=== PATIENT | female | born 2000 | race Caucasian/White ===

== ENCOUNTER 2019-01-31 13:17 | Emergency (ER) | payer BC ==
--- OUTSIDE RECORDS SUMMARY | 2019-01-31 14:00 | XMS REPORT | Continuity of Care Document ---
:2000 External Reference #:[id number] Author Name Litzy Poon Care Team Providers Name Role Phone Patient's Choice Primary Care Physician Unavailable Payers Date Identification Numbers Payment Provider Subscriber Effective: 2018 Policy Number: [id number] [employer] Yumiko Meek PayID: [id number] [address] [address] [place] [address] Advance Directives Description No Information Available Problems Date Description Provider Status Onset: 08/07/2018 Irritable bowel syndrome Yumiko Mak NP Active Onset: 10/24/2018 Gastroesophageal reflux disease Yumiko Mak NP Active Onset: 10/24/2018 Laparoscopy Yumiko Mak NP Active Note: nodule removal from left sacral ligament on her uterus. Onset: 12/15/2018 Anxiety Yumiko Mak NP Active Onset: 12/15/2018 Mild depression Yumiko Mak NP Active Family History Date Family Member(s) Observation Comments Father Hypercholesterolemia Father Hypertension Mother No Current Problems Siblings 1 Social History Type Date Description Comments Sex Unknown Lives With Alone Occupation Student ETOH Use Occasionally consumes alcohol Tobacco Use Start: Unknown Patient has never smoked Recreational Drug Use Current Drug User pot Smoking Status Reviewed: 01/09/19 Patient has never smoked Exercise Type/Frequency Exercises sporadically Allergies, Adverse Reactions, Alerts Date Description Reaction Status Severity Comments 08/07/2018 Sulfa Antibiotics Active Medications Medication Date Status Form Strength Qnty SIG Indications Ordering Provider Propranolol 01/09/ Active Tablets 10mg 1 tab by Other HCL 2019 mouth Ordering three a Provider day Mirena (52 MG) 12/15/ Active IUD 20mcg/24HR Other 2019 Ordering Provider Zofran 18/ Active Tablets 4mg 30tabs one tablet Yumiko 2018 every 6 to CAMI Mak 8 hours as needed Pantoprazole 09/26/ Active Tablets DR 40mg 30tabs take as Yumiko Sodium 2018 directed Mak, MANAGER RADIATION 30 minutes prior to meal once a day Duloxetine HCL / Active Caps DR 20mg Unknown 0000 Part Prazosin HCL / Active Capsules 1mg Unknown 0000 Buspirone HCL / Active Tablets 5mg Unknown 0000 Align 09/01/ Hx 4mg Yumiko Probiotic 2018 - Mak, MANAGER RADIATION 2018 No Active 08/07/ Hx Unknown Medications 2017 - 2017 Zofran 08/07/ Hx Tablets 4mg Yumiko 2018 - Mak, MANAGER RADIATION 2017 Ondansetron 08/07/ Hx Tablets 4mg Yumiko 2018 - Dispers Mak, MANAGER RADIATION 2017 No Active 08/07/ Hx Unknown Medications 2017 - 2017 Ondansetron 08/07/ Hx Tablets 4mg 15tabs take one Yumiko 2017 - Dispers tablet for Mak, MANAGER RADIATION 09/26/ nausea 2018 q8hr as needed Fibercon / Hx Tablets 625mg take 2 Unknown 0000 - tablets by 12/14/ mouth two 2019 times daily or as directed Sertraline HCL / Hx Tablets 100mg 1 by mouth Unknown 0000 - every day 2018 Propranolol / Hx Tablets 10mg 1 tab by Unknown HCL 0000 - mouth 01/08/ a 2018 day Immunizations Description No Information Available Vital Signs Date Vital Result Comment 01/09/2019 8:50am Height 62.5 inches 5'2.50" Weight 121.38 lb Heart Rate 72 /min BP Systolic 103 mmHg BP Diastolic 58 mmHg Respiratory Rate 16 /min Body Temperature 98.3 F O2 % BldC Oximetry 100 % BMI (Body Mass Index) 21.8 kg/m2 12/15/2018 11:10am Height 62.5 inches 5'2.50" Weight 116.00 lb Heart Rate 60 /min BP Systolic 104 mmHg BP Diastolic 64 mmHg Respiratory Rate 16 /min Body Temperature 97.9 F O2 % BldC Oximetry 99 % BMI (Body Mass Index) 20.9 kg/m2 10/24/2018 11:17am Height 62.5 inches 5'2.50" Weight 117.38 lb Heart Rate 91 /min BP Systolic 110 mmHg BP Diastolic 66 mmHg Respiratory Rate 16 /min Body Temperature 97.2 F O2 % BldC Oximetry 100 % BMI (Body Mass Index) 21.1 kg/m2 09/15/2018 1:20pm Height 62.5 inches 5'2.50" Weight 123.12 lb Heart Rate 88 /min BP Systolic 120 mmHg BP Diastolic 58 mmHg Respiratory Rate 18 /min O2 % BldC Oximetry 99 % BMI (Body Mass Index) 22.2 kg/m2 09/01/2018 11:46am Height 62.5 inches 5'2.50" Weight 122.00 lb Heart Rate 135 /min pt states she feels dehydrated BP Systolic 140 mmHg BP Diastolic 90 mmHg Respiratory Rate 20 /min Pain Level 0 O2 % BldC Oximetry 99 % BMI (Body Mass Index) 22.0 kg/m2 08/07/2018 2:23pm Height 62.5 inches 5'2.50" Weight 131.12 lb Heart Rate 64 /min BP Systolic Sitting 102 mmHg BP Diastolic Sitting 62 mmHg Respiratory Rate 20 /min Body Temperature 99.3 F O2 % BldC Oximetry 100 % BMI (Body Mass Index) 23.6 kg/m2 Results Test Date Facility Test Result H/L Range Note Laboratory test 01/01/2019 [facility] Clotest SEE RESULT 1 , [address] [place] [address] [phone] Laboratory test 01/01/2019 [facility] Surgical SEE RESULT 3 , [address] [place] [address] [phone] Laboratory test 12/15/2018 [facility] TSH (Thyroid 0.22 Low 0.34-5.[address] Stim Horm) mcIU/[place] [address] [phone] T3 Free 3.60 pg/mL N 2.5-3.9 Free T4 (Free Thyroxine) 0.86 ng/dL N 0.61-1.12 Laboratory test 10/25/2018 [facility] Gastrin 83 pg/mL [address] [place] [address] [phone] Laboratory test 09/06/2018 [facility] Stool Culture SEE RESULT [address] [place] [address] [phone] Stool Calprotectin <15.6 g/G 7 E.Coli 0157:H7 SEE RESULT BELOW 8 CBC No Diff 09/01/2018 [facility] White Blood 9.7 10^3/uL N 3.5-10.[address] [place] [address] [phone] Red Blood Count 4.93 10^6/uL N 4.00-5.40 Hemoglobin 14.6 g/dL N 12.0-16.0 Hematocrit 42 % N 35-47 Mean Corpuscular Volume 85 fL N 80-97 Mean Corpuscular Hemoglobin 30 pg N 27-31 Mean Corpuscular HGB Conc 35 g/dL N 31-36 Red Cell Distribution Width 14 % N 10.5-15 Platelet Count 280 10^3/uL N 150-450 Mean Platelet Volume 8.0 fL N 7.4-10.4 Laboratory test 09/01/2018 [facility] C Reactive 2.51 mg/L N < 8.[address] [place] [address] [phone] Comp Metabolic 09/01/2018 [facility] Sodium 140 mmol/L N 135- [address] [place] [address] [phone] Potassium 3.9 mmol/L N 3.5-5.0 Chloride 105 mmol/L N 101-111 Co2 Carbon Dioxide 23 mmol/L N 22-32 Anion Gap 12 mmol/L High 2-11 Glucose 77 mg/dL N 70-100 Blood Urea Nitrogen 10 mg/dL N 6-24 Creatinine 0.78 mg/dL N 0.51-0.95 BUN/Creatinine Ratio 12.8 N 8-20 Calcium 9.7 mg/dL N 8.6-10.3 Total Protein 7.3 g/dL N 6.4-8.9 Albumin 5.0 g/dL N 3.2-5.2 Globulin 2.3 g/dL N 2-4 Albumin/Globulin Ratio 2.2 N 1-3 Total Bilirubin 0.60 mg/dL N 0.2-1.0 Alkaline Phosphatase 63 U/L N 34-104 Alt 12 U/L N 7-52 Ast 19 U/L N 13-39 Egfr Non- 94.2 >60 Egfr 113.9 >60 9 Lipid Profile 09/01/2018 [facility] Triglycerides 47 mg/dL 10 (Trig/Chol/HDL) [address] [place] [address] [phone] Cholesterol 144 mg/dL 11 HDL Cholesterol 34.7 mg/dL 12 LDL Cholesterol 100 mg/dL 13 Laboratory test 09/01/2018 [facility] Stool Culture <pending> finding [address] [place], [place] [id number] [phone] E.Coli 0157:H7 <pending> Stool Calprotectin <pending> 1 [id number] 2 SEE RESULT BELOW Name: AUDELIA MEEK : [address]: Lazarus Lopez MD Acct: [id number] Unit: [id number] AGE: 18 Location: [facility] Re01/01/19 SEX: F Status: DEP REF SPEC: [id number] NAKUL: 01/01/19-[address] [facility] [address]: Lazarsu Lopez MD REQ: [id number] RECD: 01/01/19 STATUS: BREANA CONTRERAS DR: Yumiko Mak MANAGER RADIATION _ SOURCE: GAS ANTRUM SPDESC: ORDERED: Clotest COMMENTS: [id number] Procedure Result Reported Site Clotest Final 01/02/19- 38 ML Clotest Negative * ML - Main Lab . END OF REPORT DEPARTMENT OF PATHOLOGY, [address] [place] [address] Kali Duffy M.D. Director [facility] # [id number] SEE RESULT BELOW Name: AUDELIA MEEK : [address]: Lazarus Lopez MD Acct: [id number] Unit: [id number] AGE: 18 Location: [facility] Re01/01/19 SEX: F Status: DEP REF SPEC: [id number] NAKUL: 01/01/19-[address] [facility] [address]: Lazarus Lopez MD REQ: [id number] RECD: 01/01/19160 STATUS: YELITZA OCNTRERAS DR: Rios Terry MD _ ORDERED: LEVEL 4 COMMENTS: [id number] FINAL DIAGNOSIS Duodenum, third portion, biopsy: -- Benign small intestinal mucosa with no significant pathologic abnormalities. -- No evidence of villous blunting or increased intraepithelial lymphocytes. CLINICAL HISTORY Nausea every AM and dry heaving started in February of 2018 bad in August; upper and lower pain; lots of diarrhea POST-OPERATIVE DIAGNOSIS EGD: larynx - symmetric; esophagus - normal x 36 cm; esophagogastric junction - normal; stomach - normal; duodenum - normal, biopsy; conclusions: normal EGD; nausea GROSS DESCRIPTION The specimen is received in formalin labeled, Third Portion Duodenum Biopsy, and consists of two aguilar-pink irregular soft tissue fragments measuring 0.4 x 0.4 x 0.1 cm and 0.5 by up to 0.3 x 0.1 cm which are submitted entirely in one cassette. Signed by and Reported on: Dianne Zimmerman MD 01/02/19 1144 END OF REPORT DEPARTMENT OF PATHOLOGY, [address] [place] [address] Kali Duffy M.D. Director [facility] # [id number] 5 REFERENCE VALUE <100 Reference ranges valid for >=8 hour fast. Test Performed by: [facility] [address] [place] [address] 6 SEE RESULT BELOW Name: AUDELIA MEEK : [address]: Yumiko Mak NP Acct: [id number] Unit: [id number] AGE: 18 Location: [facility] Re09/06/18 SEX: F Status: REG REF SPEC: [id number] NAKUL: 09/06/18-[address] [facility] [address]: Yumiko Mak NP REQ: [id number] RECD: 09/06/18 STATUS: RES _ SOURCE: STOOL SPDESC: ORDERED: E.coli O157:H7, Stool Culture COMMENTS: [id number] Procedure Result Reported Site E.coli O157:H7 Culture PENDING Stool Culture PENDING Stool Specimen Description Final 09/06/18- 1130 ML Stool Color Brown Stool Form Formed Stool Consistency Firm Shiga Toxin 1 2 Final 09/07/18- 1033 ML Organism 1 Negative Shiga Toxin 1 2 Immunochromatographic Assay * ML - Main Lab . END OF REPORT DEPARTMENT OF PATHOLOGY, [address] [place] [address] Kali Duffy M.D. Director [facility] # [id number] 7 REFERENCE VALUE <=50.0 (Normal) Test Performed by: [facility] [address] [place] [address] 8 SEE RESULT BELOW Name: AUDELIA MEEK : [address]: Yumiko Mak NP Acct: [id number] Unit: [id number] AGE: 18 Location: [facility] Re09/06/18 SEX: F Status: REG REF SPEC: [id number] NAKUL: 09/06/18-[address]: Yumiko Mak NP REQ: [id number] RECD: 09/06/18 STATUS: COMP _ SOURCE: STOOL SPDESC: ORDERED: E.coli O157:H7, Stool Culture COMMENTS: [id number] Procedure Result Reported Site E.coli O157:H7 Culture Final 09/09/18- 1434 ML E. coli 0157 Culture Negative Stool Culture Final 09/09/18- 1434 ML Result No enteric pathogens isolated Testing for Salmonella, Shigella, Aeromonas, Plesiomonas, Yersinia and Campylobacter are included in a Stool Culture. Vibrio spp not routinely tested for in a stool culture. If testing is desired, please request specifically when placing test order. Sensitivities not routinely performed on stool isolates, as antibiotics may prolong the carriage rate of bacteria. Please contact the microbiology lab if sensitivities are required. Stool Specimen Description Final 09/06/18- 1130 ML Stool Color Brown Stool Form Formed Stool Consistency Firm Shiga Toxin 1 2 Final 09/07/18- 1033 ML Organism 1 Negative Shiga Toxin 1 2 CONTINUED ON NEXT PAGE DEPARTMENT OF PATHOLOGY, [address] [place] [address] Kali Duffy M.D. Director [facility] # [id number] Patient: AUDELIA MEEK [id number] (Continued) Specimen: [id number] Collected: 09/06/18 Received: 09/06/18 (Continued) Procedure Result Reported Site Shiga Toxin 1 2 Final (continued) 09/07/18- 1033 Immunochromatographic Assay * ML - Main Lab . END OF REPORT DEPARTMENT OF PATHOLOGY, [address] [place] [address] Kali Duffy M.D. Director [facility] # [id number] 9 Because ethnic data is not always readily available, this report includes an eGFR for both -Americans and non- Americans. The National Kidney Disease Education Program (NKDEP) does not endorse the use of the MDRD equation for patients that are not between the ages of 18 and 70, are , have extremes of body size, muscle mass, or nutritional status, or are non- or non-. According to the National Kidney Foundation, irrespective of diagnosis, the stage of the disease is based on the level of kidney function: Stage Description GFR(mL/min/1.73 m(2)) 1 Kidney damage with normal or decreased GFR 90 2 Kidney damage with mild decrease in GFR 60-89 3 Moderate decrease in GFR 30-59 4 Severe decrease in GFR 15-29 5 Kidney failure <15 (or dialysis) 10 Desirable: <150 Borderline High: 150-199 High: 200-499 Very High: >500 11 Desirable: <200 Borderline High: 200-239 High: >239 12 Low: <40 Desirable: 40-60 High: >60 13 Desirable: <100 Near Optimal: 100-129 Borderline High: 130-159 High: 160-189 Very High: >189 Procedures Description No Information Available Encounters Type Date Location Provider Dx Diagnosis Office Visit 12/15/2018 11:00a [facility] Mak NP R11.0 Nausea F41.9 Anxiety disorder, unspecified Office 10/24/2018 [facility] Calderon K21.9 Gastro-esophageal Visit 11:00a CAMI Mak reflux disease without esophagitis R11.0 Nausea F41.9 Anxiety disorder, unspecified Office Visit 09/15/2018 1:15p [facility] Yumiko Mak NP R11.0 Nausea F41.9 Anxiety disorder, unspecified Office Visit 09/01/2018 11:45a [facility], R19.4 Change in MANAGER RADIATION bowel habit R63.4 Abnormal weight loss K58.0 Irritable bowel syndrome with diarrhea Office Visit 08/07/2018 1:45p [facility] Mak K58.0 Irritable bowel MANAGER RADIATION syndrome with diarrhea Plan of Treatment No Information Available
--- NOTE | 2019-01-31 14:56 | ED ---
Palpitations / Dysrhythmia - HPI Summary HPI Summary: A 18 y/o female presents to [facility] with a chief complaint of elevated HR since waking up this morning. She notes that sometimes she gets tachycardic but it usually resolves itself, however, today it has been constant. She also reports chest pressure and denies SOB. She notes that she is scheduled to meet with an purchasing department clerk due to a low TSH. She takes Prazosin, Duloxetine and Pantoprazole for anxiety and panic attacks. She denies a Hx of bipolor or schizophrenia. She denies cocaine use but reports daily marijuana use. - History of Current Complaint Chief Complaint: EDDysrhythmPalp Time Seen by Provider: 01/31/19 14:40 Hx Obtained From: Patient Onset/Duration: Sudden Onset, Lasting Hours, Still Present Timing: Constant Severity Initially: Mild Severity Currently: Mild Character: Fast Aggravating: Nothing Alleviating: Nothing Associated Signs & Symptoms: Chest Pain - Allergy/Home Medications Allergies/Adverse Reactions: Allergies Allergy/AdvReac Type Severity Reaction Status Date / Time Sulfa (Sulfonamide Allergy Unknown Verified 12/18/18 15:06 Antibiotics) Reaction Details Home Medications: Home Medications DULoxetine DR CAP* [Cymbalta CAP*] 20 mg PO DAILY 01/31/19 [History Confirmed ] Prazosin CAP* [Minipress CAP*] 1 mg PO DAILY 01/31/19 [History Confirmed ] busPIRone TAB* [Buspar TAB*] 15 mg PO DAILY 01/31/19 [History Confirmed 01/31/19 ] PMH/Surg Hx/FS Hx/Imm Hx Endocrine/Hematology History: Denies: Hx Diabetes Cardiovascular History: Denies: Hx Hypertension - Surgical History Surgery Procedure, Year, and Place: endometriosis surgery - Immunization History Date of Influenza Vaccine: 07/2018 Immunizations Up to Date: Yes Infectious Disease History: No Infectious Disease History: Denies: Traveled Outside the [place] in Last 30 Days - Family History Known Family History: Positive: Other - Hyperthyroid and hypothyroid in family - Social History Alcohol Use: Weekly Substance Use Type: Reports: Marijuana Substance Use Comment - Amount & Last Used: daily Smoking Status (MU): Never Smoked Tobacco Review of Systems Positive: Fever - 100.4 at triage Positive: Palpitations - tachycardic, Chest Pain - pressure Negative: Shortness Of Breath All Other Systems Reviewed And Are Negative: Yes Physical Exam - Summary Physical Exam Summary: Appearance: Well appearing, no pain distress Skin: warm, dry, reflects adequate perfusion Head/face: normal Eyes: EOMI, FER ENT: normal Neck: supple, non-tender Respiratory: CTA, breath sounds present Cardiovascular: tachycardic, pulses symmetrical Abdomen: non-tender, soft Musculoskeletal: normal, strength/ROM intact Neuro: normal, sensory motor intact, A&Ox3 Triage Information Reviewed: Yes Vital Signs On Initial Exam: Initial Vitals Temp Pulse Resp BP Pulse Ox 100.4 F 162 18 141/98 98 01/31/19 13:30 01/31/19 13:30 01/31/19 13:30 01/31/19 13:30 01/31/19 13:30 Vital Signs Reviewed: Yes Diagnostics - Vital Signs Vital Signs Temp Pulse Resp BP Pulse Ox 01/31/19 13:30 100.4 F 162 18 141/98 98 - Laboratory Result Diagrams: 01/31/19 15:33 01/31/19 15:33 Lab Statement: Any lab studies that have been ordered have been reviewed, and results considered in the medical decision making process. - Radiology CXR Radiology Interpretation Completed By: Radiologist Summary of Radiographic Findings: NO ACTIVE CARDIOPULMONARY DISEASE IS NOTED. ED physician has reviewed this imaging report. - EKG 13:36 Cardiac Rate: Tachycardia - 127 bpm EKG Rhythm: Sinus Tachycardia Summary of EKG Findings: EKG at 13:36 showed sinus tachycardia at 127 bpm. Re-Evaluation - Re-Evaluation First Eval Re-Evaluation Time: 19:52 Change: Improved Comment: Discussed results and plan for DC. Course/Dx - Course Course Of Treatment: A 18 y/o female presents to [facility] with a chief complaint of elevated HR since waking up this morning. The physical exam revealed that the patient was tachycardic. EKG at 13:36 showed sinus tachycardia at 127 bpm. CXR impression: NO ACTIVE CARDIOPULMONARY DISEASE IS NOTED. Bloodwork and chemistries obtained. In the ED course the patient was given sodium chloride IV. The patient will be discharged with a prescription for Propranolol. She was instructed to follow up with Dr. Neal. She is agreeable with this plan. - Diagnoses Differential Diagnosis/HQI/PQRI: Positive: Other - anxeity reaction/ hyperthyroidism Provider Diagnoses: Hyperthyroidism, Palpitations - Physician Notifications Discussed Care Of Patient With: Norbert Neal Time Discussed With Above Provider: 17:26 Instructed by Provider To: Other - Recommended discharge and follow up with him tomorrow. Discharge - Sign-Out/Discharge Documenting (check all that apply): Patient Departure - DC Patient Received Moderate/Deep Sedation with Procedure: No - Discharge Plan Condition: Stable Disposition: HOME Prescriptions: Propranolol LA CAP* [Inderal LA CAP*] 80 mg PO DAILY #30 cap.la Patient Education Materials: Heart Palpitations (DC), Hyperthyroidism (ED) Referrals: Norbert Neal MD [Medical Doctor] - Yumiko Mak NP [Primary Care Provider] - 3 Days Additional Instructions: Follow up with Dr. Neal. Return to the ED if you experience any new or worsening symptoms. - Billing Disposition and Condition Condition: STABLE Disposition: Home - Attestation Statements Document Initiated by Hernane: Yes Documenting Scribe: Antoine Austin Provider For Whom Scribe is Documenting (Include Credential): Bob Cassidy MD Scribe Attestation: IAntoine, scribed for Bob Cassidy MD on 01/31/19 at 2006. Scribe Documentation Reviewed: Yes Provider Attestation: The documentation as recorded by the Antoine millan accurately reflects the service I personally performed and the decisions made by Bob lynch MD Status of Scribe Document: Viewed
[2019-01-31] MEDS ORDERED: NS 0.9% 1000 ML** 2,000 ML IV ONE (15:05)
[2019-01-31 15:55] LABS: ABS Basophils 0 10^3/ul (0-0.2); ABS Eosinophils 0 10^3/ul (0-0.6); ABS Lymphocytes 1.7 10^3/ul (1.0-4.8); ABS Monocytes 0.6 10^3/ul (0-0.8); ABS Neutrophils 4.9 10^3/ul (1.5-7.7); ABS Nucleated RBC 0 10^3/ul; Eosinophil % 0.7 %; Hematocrit 38 % (33-41); Hemoglobin 13.1 g/dL (12.0-16.0); Lymphocyte % 22.8 %; Mean Corpuscular HGB Conc 35 g/dL (31-36); Mean Corpuscular Hemoglobin 30 pg (27-31); Mean Corpuscular Volume 87 fL (80-97); Mean Platelet Volume 7.4 fL (7.4-10.4); Nucleated Red Blood Cells % 0; Platelet Count 220 10^3/uL (150-450); Red Blood Count 4.32 10^6 /uL (3.70-4.87); Red Cell Distribution Width 14 % (10.5-15); White Blood Count 7.3 10^3/uL (3.5-10.8)
[2019-01-31 16:02] LABS: Activated Partial Thrombo Time 30.5 seconds (26.0-36.3); INR 1.24 (0.82-1.09)
[2019-01-31 16:04] LABS: Anion Gap 6 mmol/L (2-11); CO2 Carbon Dioxide 24 mmol/L (22-32); Calcium 8.6 mg/dL (8.6-10.3); Chloride 109 mmol/L (101-111); Magnesium 1.8 mg/dL (1.9-2.7); Potassium 3.9 mmol/L (3.5-5.0); Sodium 139 mmol/L (135-145)
[2019-01-31 16:10] LABS: ALT 11 U/L (7-52); AST 18 U/L (13-39); Albumin/Globulin Ratio 1.7 (1-3); Alkaline Phosphatase 54 U/L (34-104); BUN/Creatinine Ratio 15.1 (8-20); Blood Urea Nitrogen 11 mg/dL (6-24); EGFR Non-African American 101.6 (>60); Globulin 2.4 g/dL (2-4); Glucose 89 mg/dL (70-100); Total Protein 6.4 g/dL (6.4-8.9)
[2019-01-31 16:11] LABS: Troponin I 0.02 ng/mL (<0.04)
[2019-01-31 16:14] LABS: HCG Pregnancy < 0.60 mIU/mL
[2019-01-31 16:42] LABS: TSH (Thyroid Stimulating Horm) 0.24 mcIU/mL (0.34-5.60)
[2019-01-31] MEDS ORDERED: Magnesium Sulfate 1 GM IV* 1 GM/100 ML BAG IV ONE (16:43)
[2019-01-31] MEDS ORDERED: Propranolol LA CAP* 80 MG PO ONE (17:23)
[2019-01-31 18:01] LABS: Free T4 1.27 ng/dL (0.61-1.12)
[2019-01-31 20:01] VITALS: BP 121/76
== END 2019-01-31 20:02 | disposition home or self-care (01) ==
LOC: ED 13:17
DX: E05.90 Thyrotoxicosis, unspecified without thyrotoxic crisis or storm (principal); R00.2 Palpitations; Z88.2 Allergy status to sulfonamides; Z79.899 Other long term (current) drug therapy
CPT/HCPCS: 36415; 71045; 80053; 83735; 83880; 84439; 84443; 84480; 84481; 84484; 84702; 85025; 85379; 85610; 85730; 86376; 93005; 96361; 96365; 99284; A9270-GY; J3475

== ENCOUNTER 2019-11-23 10:04 | Emergency (ER) | payer BC ==
[2019-11-23] MEDS ORDERED: Ondansetron INJ* 2 MG/ML VIAL IV ONE (10:17)
--- NOTE | 2019-11-23 10:23 | ED ---
Abdominal Pain/Female - HPI Summary HPI Summary: Patient is a 19 y/o F presenting to the ED for a chief complaint of diffuse abdominal pain. Patient also reports dizziness, palpitations, nausea, and vomiting. She denies diarrhea. Previously, patient was seen at [facility]gent [facility] and was given Zofran without relief. No aggravating or alleviating factors are reported. On the night of 11/22/19, patient admits drinking alcohol. PMHx is significant for endometriosis and hypothyroidism for which she takes medication. Allergy to Sulfa drugs is noted. - History of Current Complaint Chief Complaint: EDGeneral Stated Complaint: VOMITING/PALPITATIONS PER PT Time Seen by Provider: 11/23/19 10:14 Hx Obtained From: Patient Onset/Duration: Sudden Onset, Still Present Timing: Constant Severity Initially: Moderate Severity Currently: Severe Pain Intensity: 8 Pain Scale Used: 0-10 Numeric Location: Diffuse Radiates: No Aggravating Factor(s): Nothing Alleviating Factor(s): Nothing Associated Signs and Symptoms: Positive: Dizzy, Nausea, Vomiting. Negative: Diarrhea Allergies/Adverse Reactions: Allergies Allergy/AdvReac Type Severity Reaction Status Date / Time Sulfa (Sulfonamide Allergy Unknown Verified 11/23/19 10:10 Antibiotics) Reaction Details PMH/Surg Hx/FS Hx/Imm Hx Previously Healthy: Yes Endocrine/Hematology History: Reports: Hx Thyroid Disease - Hypothyroidism, Hx Anemia Denies: Hx Diabetes Cardiovascular History: Denies: Hx Hypertension, Hx Pacemaker/ICD Respiratory History: Reports: Hx Asthma Denies: Hx Chronic Obstructive Pulmonary Disease (COPD) History: Denies: Hx Renal Disease Musculoskeletal History: Reports: Hx Back Problems, Other Musculoskeletal History - Chornic Neck Pain Denies: Hx Rheumatoid Arthritis, Hx Osteoporosis Sensory History: Reports: Hx Contacts or Glasses Denies: Hx Legally Blind, Hx Deafness, Hx Hearing Aid Opthamlomology History: Reports: Hx Contacts or Glasses Denies: Hx Legally Blind EENT History: Denies: Hx Deafness, Hx Hearing Aid Psychiatric History: Reports: Hx Anxiety, Hx Panic Disorder - Panic attacks - Surgical History Surgical History: Yes Surgery Procedure, Year, and Place: endometriosis surgery - Immunization History Date of Influenza Vaccine: 07/2018 Infectious Disease History: No Infectious Disease History: Denies: Traveled Outside the [place] in Last 30 Days - Family History Known Family History: Positive: Other - Hyperthyroid and hypothyroid in family - Social History Occupation: Student Alcohol Use: Weekly Alcohol Amount: 1-2 drinks per week Hx Substance Use: Yes Substance Use Type: Reports: Marijuana Substance Use Comment - Amount & Last Used: daily Hx Tobacco Use: No Smoking Status (MU): Never Smoked Tobacco Review of Systems Positive: Palpitations Positive: Abdominal Pain - Diffuse, Vomiting, Nausea. Negative: Diarrhea Neurological/Mental Status: Other - Positive dizziness All Other Systems Reviewed And Are Negative: Yes Physical Exam - Summary Physical Exam Summary: Appearance: The patient is well-nourished in no acute distress and in no acute pain. Skin: The skin is warm and dry, and skin color reflects adequate perfusion. HEENT: The head is normocephalic and atraumatic. The pupils are equal and reactive. The conjunctivae are clear and without drainage. Nares are patent and without drainage. Mouth reveals moist mucous membranes, and the throat is without erythema and exudate. The external ears are intact. The ear canals are patent and without drainage. The tympanic membranes are intact. Neck: The neck is supple with full range of motion and non-tender. There are no carotid bruits. There is no neck vein distension. Respiratory: Chest is non-tender. Lungs are clear to auscultation and breath sounds are symmetrical and equal. Cardiovascular: Heart is regular rate and rhythm. There is no murmur or rub auscultated. There is no peripheral edema and pulses are symmetrical and equal. Abdomen: The abdomen is soft and non-tender. There are normal bowel sounds heard in all four quadrants and there is no organomegaly palpated. Musculoskeletal: There is no back tenderness noted. Extremities are non-tender with full range of motion. There is good capillary refill. There is no peripheral edema or calf tenderness elicited. Neurological: Patient is alert and oriented to person, place and time. The patient has symmetrical motor strength in all four extremities. Cranial nerves are grossly intact. Deep tendon reflexes are symmetrical and equal in all four extremities. Psychiatric: The patient has an appropriate affect and does not exhibit any anxiety or depression. Triage Information Reviewed: Yes Vital Signs On Initial Exam: Initial Vitals Temp Pulse Resp BP Pulse Ox 98.8 F 104 16 129/96 98 11/23/19 10:07 11/23/19 10:11/23/19 10:07 11/23/19 10:07 02/14/20 10:07 Vital Signs Reviewed: Yes Procedures - Sedation Patient Received Moderate/Deep Sedation with Procedure: No Diagnostics - Vital Signs Vital Signs Temp Pulse Resp BP Pulse Ox 11/23/19 10:07 98.8 F 104 16 129/96 98 - Laboratory Result Diagrams: 11/23/19 10:26 11/23/19 10:26 Lab Statement: Any lab studies that have been ordered have been reviewed, and results considered in the medical decision making process. Abdominal Pain Fem Course/Dx - Course Course Of Treatment: Ms. Bal and too much alcohol to drink last night and came in feeling quite badly. She had been given Zofran to no respite at [facility]. She was nontoxic in appearance with stable vitals. She was given IV fluids and Zofran here and responded well. - Diagnoses Provider Diagnoses: Vomiting, Dehydration Discharge ED - Sign-Out/Discharge Documenting (check all that apply): Patient Departure - Discharge - Discharge Plan Condition: Stable Disposition: HOME Patient Education Materials: Dehydration (ED) Referrals: Ashwini Pacheco [facility] REGISTRAR [Primary Care Provider] - Additional Instructions: RETURN TO THE EMERGENCY DEPARTMENT FOR CHANGING OR WORSENING SYMPTOMS. Follow up with your primary care physician in 2-3 days. - Billing Disposition and Condition Condition: STABLE Disposition: Home - Attestation Statements Document Initiated by Pepe: Yes Documenting Scribe: Livier Ramirez Provider For Whom Pepe is Documenting (Include Credential): Jeremias Silva MD Scribe Attestation: Livier Lopez, scribed for Jeremias Silva MD on 11/23/19 at 1435. Scribe Documentation Reviewed: Yes Provider Attestation: The documentation as recorded by the Livier millan accurately reflects the service I personally performed and the decisions made by me, Jeremias Silva MD Status of Scribe Document: Viewed
[2019-11-23 10:38] LABS: ABS Basophils 0.1 10^3/ul (0-0.2); ABS Lymphocytes 1.2 10^3/ul (1.0-4.8); ABS Monocytes 0.3 10^3/ul (0-0.8); ABS Neutrophils 10.8 10^3/ul (1.5-7.7); Eosinophil % 0.3 %; Hematocrit 39 % (35-47); Hemoglobin 13.5 g/dL (12.0-16.0); Lymphocyte % 9.9 %; Mean Corpuscular HGB Conc 35 g/dL (31-36); Mean Corpuscular Hemoglobin 31 pg (27-31); Mean Corpuscular Volume 88 fL (80-97); Mean Platelet Volume 7.2 fL (7.4-10.4); Platelet Count 316 10^3/uL (150-450); Red Blood Count 4.41 10^6 /uL (3.70-4.87); Red Cell Distribution Width 13 % (10-15); White Blood Count 12.4 10^3/uL (3.5-10.8)
[2019-11-23] MEDS: NS 0.9% 1000 ML** 2,000 ML IV ONE (10:47)
--- OUTSIDE RECORDS SUMMARY | 2019-11-23 10:57 | XMS REPORT | Continuity of Care Document ---
:2000 External Reference #:[id number] Author Name Atilio Salazar JR, DO Address [address], [place] [address] Care Team Providers Name Role Phone Norbert Neal M.D. - Endocrinology, Care Team Information [employer] [phone] Diabetes & Metabolism Problems Active Problems Provider Date Endometriosis of uterus Atilio Salazar JR, DO Onset: 10/20/2018 Social History Type Date Description Comments Sex Unknown Cigarette Use Does Not Smoke Cigarettes ETOH Use Occasionally consumes alcohol Recreational Drug Use Uses Marijuana Daily Tobacco Use Start: Unknown Patient has never smoked Smoking Status Reviewed: 11/21/19 Patient has never smoked Exercise Type/Frequency Exercises regularly Seat Belt/Car Seat Always uses seat belt Allergies, Adverse Reactions, Alerts Active Allergies Reaction Severity Comments Date Sulfa 11/06/2019 Medications Active Medications SIG Qnty Indications Ordering Provider Date Lo Loestrin Fe take 1 tablet 140tabs Atilio Salazar JR, 11/07/2019 1mg-10 daily. DO mcg / 10 mcg Tablets Duloxetine HCL take one capsule Unknown 30mg by mouth once Caps DR Part daily , along with 60 mg daily Methimazole Unknown 5mg Tablets Ondansetron dissolve one in Unknown 4mg mouth every 6 to Tablets Dispers 8 hours as needed for nausea Prazosin HCL 1 by mouth at Unknown 5mg bedtime Capsules Propranolol HCL Unknown 20mg/5ML Solution Buspirone HCL 1 by mouth twice Unknown 5mg a day Tablets Immunizations Description No Information Available Vital Signs Date Vital Result Comment 11/21/2019 8:35am BP Systolic 100 mmHg BP Diastolic 68 mmHg Height 62.50 inches 5'2.50" Weight 116.00 lb BMI (Body Mass Index) 20.9 kg/m2 Last Menstrual Period [id number] 11/07/2019 7:57am BP Systolic 114 mmHg BP Diastolic 60 mmHg Height 62.50 inches 5'2.50" Weight 116.00 lb BMI (Body Mass Index) 20.9 kg/m2 Last Menstrual Period [id number] Parity 0 Results Description No Information Available Procedures Description No Information Available Medical Devices Description No Information Available Encounters Type Date Location Provider Dx Diagnosis Office Visit 11/21/2019 [facility] Atilio Salazar JR, N80.9 Endometriosis, 8:30a DO unspecified Office Visit 11/07/2019 [facility] Atilio Salazar JR, N80.9 Endometriosis, 8:00a DO unspecified K64.9 Unspecified hemorrhoids Assessments Date Code Description Provider 11/21/2019 N80.9 Endometriosis, unspecified Atilio Salazar JR, DO 11/07/2019 N80.9 Endometriosis, unspecified Atilio Salazar JR, DO 11/07/2019 K64.9 Unspecified hemorrhoids Atilio Salazar JR, DO Plan of Treatment Future Appointment(s):01/24/2020 3:00 pm - Atilio Salazar JR, DO at [facility] Functional Status Description No Information Available Mental Status Description No Information Available Referrals Description No Information Available
--- OUTSIDE RECORDS SUMMARY | 2019-11-23 10:57 | XMS REPORT | Continuity of Care Document ---
:2000 External Reference #:[id number] Author Name Atilio Salazar JR, DO (transmitted by agent of provider Francine Ramesh ) Address [address] [place] [address] Care Team Providers Name Role Phone Norbert Neal M.D. - Endocrinology, Care Team Information [employer] Diabetes & Metabolism Problems Active Problems Provider Date Endometriosis of uterus Atilio Salazar JR, DO Onset: 10/20/2018 Social History Type Date Description Comments Sex Unknown Cigarette Use Does Not Smoke Cigarettes ETOH Use Occasionally consumes alcohol Recreational Drug Use Uses Marijuana Daily Tobacco Use Start: Unknown Patient has never smoked Smoking Status Reviewed: 11/07/19 Patient has never smoked Exercise Type/Frequency Exercises regularly Seat Belt/Car Seat Always uses seat belt Allergies, Adverse Reactions, Alerts Active Allergies Reaction Severity Comments Date Sulfa 11/06/2019 Medications Active Medications SIG Qnty Indications Ordering Provider Date Mirena (52 MG) Unknown 20mcg/24HR IUD Duloxetine HCL take one capsule Unknown 30mg by mouth once Caps DR Part daily , along with 60 mg daily Methimazole Unknown 5mg Tablets Ondansetron dissolve one in Unknown 4mg Tablets mouth every 6 to 8 Dispers hours as needed for nausea Prazosin HCL 1 by mouth at Unknown 5mg bedtime Capsules Propranolol HCL Unknown 20mg/5ML Solution Buspirone HCL 1 by mouth twice a Unknown 5mg day Tablets Immunizations Description No Information Available Vital Signs Date Vital Result Comment 11/07/2019 7:57am BP Systolic 114 mmHg BP Diastolic 60 mmHg Height 62.50 inches 5'2.50" Weight 116.00 lb BMI (Body Mass Index) 20.9 kg/m2 Last Menstrual Period [id number] Parity 0 11/06/2019 2:39pm BP Systolic 130 mmHg BP Diastolic 70 mmHg Height 62.50 inches 5'2.50" Weight 122.00 lb BMI (Body Mass Index) 22.0 kg/m2 Results Description No Information Available Procedures Description No Information Available Medical Devices Description No Information Available Encounters Description No Information Available Assessments Description No Information Available Plan of Treatment No Information Available Functional Status Description No Information Available Mental Status Description No Information Available Referrals Description No Information Available
[2019-11-23 11:05] LABS: Albumin 4.8 g/dL (3.2-5.2); Anion Gap 10 mmol/L (2-11); CO2 Carbon Dioxide 23 mmol/L (22-32); Calcium 9.5 mg/dL (8.6-10.3); Chloride 108 mmol/L (101-111); Potassium 3.7 mmol/L (3.5-5.0); Sodium 141 mmol/L (135-145)
[2019-11-23 11:07] LABS: HCG Pregnancy < 0.60 mIU/mL
[2019-11-23 11:11] LABS: ALT 10 U/L (7-52); AST 18 U/L (13-39); Albumin/Globulin Ratio 1.8 (1-3); Alkaline Phosphatase 55 U/L (34-104); BUN/Creatinine Ratio 11.6 (8-20); Blood Urea Nitrogen 10 mg/dL (6-24); C Reactive Protein 2.04 mg/L (<8.01); EGFR African American 100.8 (>60); EGFR Non-African American 83.3 (>60); Globulin 2.7 g/dL (2-4); Glucose 121 mg/dL (70-100); Total Protein 7.5 g/dL (6.4-8.9)
[2019-11-23 13:20] LABS: Urine Appearance Clear; Urine Bilirubin Negative (Negative); Urine Blood Negative (Negative); Urine Color Yellow; Urine Glucose Negative (Negative); Urine Ketones 1+ (Negative); Urine Nitrite Negative (Negative); Urine Protein Negative (Negative); Urine Specific Gravity 1.021 (1.010-1.030); Urine Urobilinogen Negative (Negative)
[2019-11-23 13:51] VITALS: BP 109/60
== END 2019-11-23 14:01 | disposition home or self-care (01) ==
LOC: ED 10:04
DX: E86.0 Dehydration (principal); R11.2 Nausea with vomiting, unspecified; R42 Dizziness and giddiness; R10.84 Generalized abdominal pain; Z88.2 Allergy status to sulfonamides
CPT/HCPCS: 36415; 80053; 81003; 83605; 83690; 84702; 85025; 86140; 96361; 96374; 99283; J2405